=== PATIENT | male | born 1940 | race Caucasian/White ===

== ENCOUNTER 2017-11-07 09:02 | Inpatient (IN) | payer OTHER ==
[~2017-11-07] VITALS: Ht 165.1 cm; Wt 72.5 kg
[~2017-11-07 09:02] MED LIST: ASPI-1005 PO; ATOR-2 PO; CETI10TA57 PO; CYAN10009 PO; DEXT15DR28 OU; DIAZ10TA4 PO; DOCU100C33 PO; GUAI400T79 PO; HYDR-4060 PO; IPRA4AER IH; ISOS30TA6 PO; LISI2.5T2 PO; MIRT30TA6 PO; NITR0.4T50 SL; NIZO215C TP; OMEG1CAP43 PO; OMEP20CA10 PO; POLY17PO3 PO; SELE120S2 TP; SIME80TA12 PO; TRAM50TA4 PO
[2017-11-07] MEDS ORDERED: ASPIRIN 325 MG TABLET ONE (09:22)
[2017-11-07 09:25] LABS: BASOPHILS % (AUTO) 0.3 % (0.0-5.0); EOSINOPHILS % (AUTO) 0.8 % (0.0-8.0); HEMATOCRIT 48.2 % (42-54); LYMPHOCYTES % (AUTO) 6.6 % (21.0-51.0); MEAN CORPUSCULAR HEMOGLOBIN 31.4 pg (27.0-33.0); MEAN CORPUSCULAR HGB CONC 32.9 g/dL (32.0-36.0); MEAN CORPUSCULAR VOLUME 95.3 fL (79-99); MONOCYTES % (AUTO) 4.1 % (3.0-13.0); NEUTROPHILS % (AUTO) 88.2 % (40.0-77.0); NUCLEATED RED BLOOD CELLS 0.1 % (0.0-0.19); PLATELET COUNT (AUTO) 167 K/uL (130-400); RED BLOOD CELL COUNT(AUTO) 5.06 MIL/uL (4.50-6.20); RED CELL DISTRIBUTION WIDTH 14.1 % (11.0-15.5); WHITE BLOOD COUNT (AUTO) 15.1 K/uL (4.8-10.8)
[2017-11-07 09:37] LABS: CREATININE 1.2 mg/dL (0.5-1.5); POTASSIUM 3.9 mmol/L (3.5-5.1)
[2017-11-07 09:50] LABS: INR 0.94 (0.85-1.15); PARTIAL THROMBOPLASTIN TIME 19.9 SEC (26.3-35.5); PROTHROMBIN TIME 9.9 SEC (9.6-11.6)
[2017-11-07 09:53] LABS: ALBUMIN 3.6 g/dL (3.5-5.0); BILIRUBIN,TOTAL 0.6 mg/dL (0.2-1.0); CREATINE KINASE MB 1.1 ng/mL (0.5-3.6); TOTAL PROTEIN, SERUM 7.3 g/dL (6.0-8.3)
[2017-11-07 10:17] LABS: BAND NEUTROPHILS % (MANUAL) 1 % (0-2); EOSINOPHILS % (MANUAL) 3 % (1-6); LYMPHOCYTES % (MANUAL) 12 % (22-44); MAN.DIFF COMMENT-IMPRESSION MANUAL DIFFERENTIAL; REACTIVE LYMPHOCYTES 2 % (0-0); SEGMENTED NEUTROPHILS % 82 % (40-70)
[2017-11-07 10:18] LABS: PLATELET MORPHOLOGY COMMENT ADEQUATE
[2017-11-07] MEDS ORDERED: ONDANSETRON HCL 4 MG/2 ML VIAL ONE (10:29)
[2017-11-07] MEDS ORDERED: METHYLPREDNISOLONE SOD SUCC 40MG/ML 1ML ONE (10:29)
[2017-11-07] MEDS ORDERED: ZOSYN 3.375GM+NS 50ML 50 ML IV ONE (10:30)
[2017-11-07] MEDS ORDERED: SUCRALFATE 1 GM TABLET ONE (10:46)
[2017-11-07] MEDS ORDERED: SODIUM CHLORIDE 0.9% 1000ML 1,000 ML IV ONE (11:02)
[2017-11-07] MEDS ORDERED: IOHEXOL 350 MG/ML 100ML INFUS..BTL IV ONE (11:32)
[2017-11-07] MEDS ORDERED: IPRATROPIUM/ALBUTEROL SULFATE 3 ML SOLUTION IH ONE (13:31)
[2017-11-07 14:29] VITALS: BP 138/88
[2017-11-07] MEDS ORDERED: SPIR25TA PO (15:36)
[2017-11-07] MEDS ORDERED: TRAZ-187 PO (15:36)
[2017-11-07] MEDS ORDERED: BUDE10.2 IH (15:36)
[2017-11-07] MEDS ORDERED: ALBU8.5H8 IH (15:36)
[2017-11-07] MEDS ORDERED: PRED20TA3 PO (15:36)
[2017-11-07 15:53] VITALS: BP 134/84
[2017-11-07] MEDS: SODIUM CHLORIDE 0.9% 1000ML 1,000 ML IV SCH (16:14)
[2017-11-07] MEDS: SUCRALFATE 1 GM/10 ML PO SCH ×2 (16:30→20:39)
[2017-11-07] MEDS: METRONIDAZOLE 500MG/100ML BAG 100 ML IV SCH (18:32)
[2017-11-07] MEDS: HYDROCODONE/ACETAMINOPHEN 5/325 MG TAB PO PRN (18:38)
[2017-11-07] MEDS: IPRATROPIUM/ALBUTEROL SULFATE 3 ML SOLUTION IH SCH ×2 (19:11→22:00)
[2017-11-07 19:21] VITALS: BP 100/53
[2017-11-07] MEDS: TRAZODONE HCL 100 MG TABLET PO SCH (20:38)
[2017-11-07] MEDS: ATORVASTATIN CALCIUM 40 MG TABLET PO SCH (20:38)
[2017-11-07] MEDS: MIRTAZAPINE 15 MG TABLET PO SCH (20:38)
[2017-11-07] MEDS: FAMOTIDINE/PF 20 MG/2 ML VIAL IV SCH (20:39)
[2017-11-07] MEDS: ZOSYN 3.375GM+NS 50ML 50 ML IV SCH (20:40)
[2017-11-07] MEDS: SYMBICORT 160-4.5 MCG INHALER IH SCH (21:00)
[2017-11-07 23:52] VITALS: BP 126/87
[2017-11-08] MEDS: METRONIDAZOLE 500MG/100ML BAG 100 ML IV SCH ×3 (00:17→16:06)
[2017-11-08] MEDS: IPRATROPIUM/ALBUTEROL SULFATE 3 ML SOLUTION IH SCH ×6 (02:13→22:12)
[2017-11-08] MEDS: HYDROCODONE/ACETAMINOPHEN 5/325 MG TAB PO PRN ×3 (02:47→23:13)
[2017-11-08] MEDS: DIAZEPAM 5 MG TABLET PO SCH ×2 (03:24→21:02)
[2017-11-08 04:45] LABS: BASOPHILS % (AUTO) 0.1 % (0.0-5.0); HEMATOCRIT 44.1 % (42-54); LYMPHOCYTES % (AUTO) 4.1 % (21.0-51.0); MEAN CORPUSCULAR HEMOGLOBIN 31.4 pg (27.0-33.0); MEAN CORPUSCULAR HGB CONC 32.9 g/dL (32.0-36.0); MEAN CORPUSCULAR VOLUME 95.3 fL (79-99); MONOCYTES % (AUTO) 5.2 % (3.0-13.0); NEUTROPHILS % (AUTO) 90.6 % (40.0-77.0); PLATELET COUNT (AUTO) 131 K/uL (130-400); RED BLOOD CELL COUNT(AUTO) 4.62 MIL/uL (4.50-6.20); RED CELL DISTRIBUTION WIDTH 14.4 % (11.0-15.5); WHITE BLOOD COUNT (AUTO) 10.4 K/uL (4.8-10.8)
[2017-11-08 04:48] VITALS: BP 126/71
[2017-11-08 05:01] LABS: INR 0.97 (0.85-1.15); PARTIAL THROMBOPLASTIN TIME 25.8 SEC (26.3-35.5); PROTHROMBIN TIME 10.2 SEC (9.6-11.6)
[2017-11-08 05:02] LABS: ALBUMIN 3.1 g/dL (3.5-5.0); BILIRUBIN,DIRECT 0.1 mg/dL (0.0-0.3); BILIRUBIN,TOTAL 0.6 mg/dL (0.2-1.0); CREATININE 1.5 mg/dL (0.5-1.5); MAGNESIUM 1.8 mg/dL (1.80-2.40); POTASSIUM 3.6 mmol/L (3.5-5.1); TOTAL PROTEIN, SERUM 6.5 g/dL (6.0-8.3)
[2017-11-08] MEDS: ZOSYN 3.375GM+NS 50ML 50 ML IV SCH ×3 (06:39→21:03)
[2017-11-08] MEDS: SUCRALFATE 1 GM/10 ML PO SCH ×4 (06:40→21:03)
[2017-11-08] MEDS: SODIUM CHLORIDE 0.9% 1000ML 1,000 ML IV SCH (06:43)
[2017-11-08 07:43] VITALS: BP 124/66
[2017-11-08] MEDS: ENOXAPARIN SODIUM 40 MG/0.4 ML SYRINGE SQ SCH (09:00)
[2017-11-08] MEDS: PREDNISONE 10 MG TABLET PO SCH (09:09)
[2017-11-08] MEDS: FAMOTIDINE/PF 20 MG/2 ML VIAL IV SCH ×2 (09:10→21:02)
[2017-11-08] MEDS: ISOSORBIDE MONO 30MG TAB SR PO SCH (09:10)
[2017-11-08] MEDS: ASPIRIN 81MG TAB.CHEW PO SCH (09:11)
[2017-11-08] MEDS: SYMBICORT 160-4.5 MCG INHALER IH SCH ×2 (09:15→21:00)
[2017-11-08 11:08] VITALS: BP 124/78
[2017-11-08 16:00] VITALS: BP 94/58
[2017-11-08] MEDS: CHOLESTYRAMINE PACKET 4 GM PACKET PO SCH ×2 (16:06→21:03)
[2017-11-08 19:12] VITALS: BP 129/75
[2017-11-08] MEDS: GABAPENTIN 100 MG CAPSULE PO SCH (21:00)
[2017-11-08] MEDS: MIRTAZAPINE 15 MG TABLET PO SCH (21:02)
[2017-11-08] MEDS: LACTOBACILLUS RHAMNOSUS GG 1 EACH CAP.SPRINK PO SCH (21:02)
[2017-11-08] MEDS: ATORVASTATIN CALCIUM 40 MG TABLET PO SCH (21:02)
[2017-11-08] MEDS: TRAZODONE HCL 100 MG TABLET PO SCH (21:02)
[2017-11-09] VITALS (8 sets, daily range): BP systolic 103–152; BP diastolic 52–83
[2017-11-09] MEDS: METRONIDAZOLE 500MG/100ML BAG 100 ML IV SCH ×3 (00:02→17:23)
[2017-11-09] MEDS ORDERED: IPRATROPIUM/ALBUTEROL SULFATE 3 ML SOLUTION IH PRN (00:45)
[2017-11-09] MEDS: IPRATROPIUM/ALBUTEROL SULFATE 3 ML SOLUTION IH SCH ×6 (03:03→21:57)
[2017-11-09 04:19] LABS: BASOPHILS % (AUTO) 0.5 % (0.0-5.0); EOSINOPHILS % (AUTO) 0.5 % (0.0-8.0); LYMPHOCYTES % (AUTO) 5.6 % (21.0-51.0); MEAN CORPUSCULAR HEMOGLOBIN 32.2 pg (27.0-33.0); MEAN CORPUSCULAR HGB CONC 33.7 g/dL (32.0-36.0); MEAN CORPUSCULAR VOLUME 95.4 fL (79-99); MONOCYTES % (AUTO) 5.8 % (3.0-13.0); NEUTROPHILS % (AUTO) 87.6 % (40.0-77.0); PLATELET COUNT (AUTO) 143 K/uL (130-400); RED CELL DISTRIBUTION WIDTH 14.7 % (11.0-15.5); WHITE BLOOD COUNT (AUTO) 11.8 K/uL (4.8-10.8)
[2017-11-09 04:28] LABS: CREATININE 1.4 mg/dL (0.5-1.5); POTASSIUM 3.9 mmol/L (3.5-5.1)
[2017-11-09] MEDS: ZOSYN 3.375GM+NS 50ML 50 ML IV SCH ×3 (06:03→20:08)
[2017-11-09] MEDS: HYDROCODONE/ACETAMINOPHEN 5/325 MG TAB PO PRN ×2 (06:21→14:21)
[2017-11-09] MEDS: SUCRALFATE 1 GM/10 ML PO SCH ×4 (06:21→20:10)
[2017-11-09] MEDS: LACTOBACILLUS RHAMNOSUS GG 1 EACH CAP.SPRINK PO SCH ×2 (08:41→20:09)
[2017-11-09] MEDS: ASPIRIN 81MG TAB.CHEW PO SCH (08:42)
[2017-11-09] MEDS: ENOXAPARIN SODIUM 40 MG/0.4 ML SYRINGE SQ SCH (08:42)
[2017-11-09] MEDS: PREDNISONE 10 MG TABLET PO SCH (08:42)
[2017-11-09] MEDS: ISOSORBIDE MONO 30MG TAB SR PO SCH (08:42)
[2017-11-09] MEDS: SYMBICORT 160-4.5 MCG INHALER IH SCH ×2 (08:43→20:10)
[2017-11-09] MEDS: FAMOTIDINE/PF 20 MG/2 ML VIAL IV SCH ×2 (08:43→20:10)
[2017-11-09] MEDS: CHOLESTYRAMINE PACKET 4 GM PACKET PO SCH (08:46)
[2017-11-09] MEDS: FUROSEMIDE 20 MG TABLET PO SCH (16:19)
[2017-11-09] MEDS: SPIRONOLACTONE 25 MG TAB PO SCH (16:19)
[2017-11-09] MEDS: TRAZODONE HCL 100 MG TABLET PO SCH (20:09)
[2017-11-09] MEDS: MIRTAZAPINE 15 MG TABLET PO SCH (20:09)
[2017-11-09] MEDS: ATORVASTATIN CALCIUM 40 MG TABLET PO SCH (20:09)
[2017-11-09] MEDS: GABAPENTIN 100 MG CAPSULE PO SCH (20:10)
[2017-11-09] MEDS: DIAZEPAM 5 MG TABLET PO SCH (21:49)
[2017-11-10] MEDS: METRONIDAZOLE 500MG/100ML BAG 100 ML IV SCH ×3 (01:09→18:08)
[2017-11-10] MEDS: IPRATROPIUM/ALBUTEROL SULFATE 3 ML SOLUTION IH SCH ×6 (02:33→22:44)
[2017-11-10] MEDS: ZOSYN 3.375GM+NS 50ML 50 ML IV SCH ×3 (04:58→21:15)
[2017-11-10 05:47] LABS: BASOPHILS % (AUTO) 0.3 % (0.0-5.0); EOSINOPHILS % (AUTO) 2.6 % (0.0-8.0); HEMATOCRIT 39.7 % (42-54); MEAN CORPUSCULAR HEMOGLOBIN 32.2 pg (27.0-33.0); MEAN CORPUSCULAR HGB CONC 33.8 g/dL (32.0-36.0); MEAN CORPUSCULAR VOLUME 95.4 fL (79-99); NEUTROPHILS % (AUTO) 80.1 % (40.0-77.0); PLATELET COUNT (AUTO) 129 K/uL (130-400); RED BLOOD CELL COUNT(AUTO) 4.16 MIL/uL (4.50-6.20); RED CELL DISTRIBUTION WIDTH 14.6 % (11.0-15.5); WHITE BLOOD COUNT (AUTO) 8.8 K/uL (4.8-10.8)
[2017-11-10 05:59] LABS: CREATININE 1.4 mg/dL (0.5-1.5); MAGNESIUM 1.9 mg/dL (1.80-2.40); POTASSIUM 3.4 mmol/L (3.5-5.1)
[2017-11-10 07:00] VITALS: BP 130/91
[2017-11-10] MEDS: SUCRALFATE 1 GM/10 ML PO SCH ×4 (07:03→21:13)
[2017-11-10] MEDS: PREDNISONE 10 MG TABLET PO SCH (09:54)
[2017-11-10] MEDS: LACTOBACILLUS RHAMNOSUS GG 1 EACH CAP.SPRINK PO SCH ×2 (09:54→21:13)
[2017-11-10] MEDS: SPIRONOLACTONE 25 MG TAB PO SCH (09:54)
[2017-11-10] MEDS: FUROSEMIDE 20 MG TABLET PO SCH (09:55)
[2017-11-10] MEDS: ASPIRIN 81MG TAB.CHEW PO SCH (09:55)
[2017-11-10] MEDS: ISOSORBIDE MONO 30MG TAB SR PO SCH (09:55)
[2017-11-10] MEDS: FAMOTIDINE/PF 20 MG/2 ML VIAL IV SCH ×2 (09:55→21:14)
[2017-11-10] MEDS: SYMBICORT 160-4.5 MCG INHALER IH SCH ×2 (09:56→21:00)
[2017-11-10] MEDS: ENOXAPARIN SODIUM 40 MG/0.4 ML SYRINGE SQ SCH (09:57)
[2017-11-10 11:00] VITALS: BP 123/76
[2017-11-10] MEDS: HYDROCODONE/ACETAMINOPHEN 10/325 MG TAB PO PRN ×2 (12:23→21:36)
[2017-11-10 16:00] VITALS: BP 103/59
[2017-11-10] MEDS ORDERED: POLYETHYLENE GLYCOL 3350 17 GM POWD.PACK ONE (18:06)
[2017-11-10] MEDS ORDERED: DOCUSATE SODIUM 100 MG CAP PO ONE (18:06)
[2017-11-10] MEDS ORDERED: PANTOPRAZOLE SODIUM 40 MG TABLET.DR PO ONE (18:06)
[2017-11-10 19:10] LABS: ABG BASE EXCESS 2.9 mmol/L (-2.0-3.0); ABG HCO3 27.3 mmol/L (21.0-28.0); ABG OXYGEN SATURATION 95.3 % (95.0-99.0); ABG PCO2 41 mmHg (35-48)
[2017-11-10 20:00] VITALS: BP 124/85
[2017-11-10] MEDS: ATORVASTATIN CALCIUM 40 MG TABLET PO SCH (21:13)
[2017-11-10] MEDS: TRAZODONE HCL 100 MG TABLET PO SCH (21:13)
[2017-11-10] MEDS: DOCUSATE SODIUM 100 MG CAP PO SCH (21:14)
[2017-11-10] MEDS: DIAZEPAM 5 MG TABLET PO SCH (21:14)
[2017-11-10] MEDS: GABAPENTIN 100 MG CAPSULE PO SCH (21:14)
[2017-11-10] MEDS: MIRTAZAPINE 15 MG TABLET PO SCH (21:14)
[2017-11-11] MEDS: METRONIDAZOLE 500MG/100ML BAG 100 ML IV SCH ×2 (01:14→10:32)
[2017-11-11] MEDS: IPRATROPIUM/ALBUTEROL SULFATE 3 ML SOLUTION IH SCH ×6 (02:28→21:19)
[2017-11-11] MEDS: ZOSYN 3.375GM+NS 50ML 50 ML IV SCH (04:59)
[2017-11-11] MEDS: SUCRALFATE 1 GM/10 ML PO SCH ×5 (06:10→22:00)
[2017-11-11 08:00] VITALS: BP 146/86
[2017-11-11] MEDS: SYMBICORT 160-4.5 MCG INHALER IH SCH ×2 (09:00→21:00)
[2017-11-11] MEDS: ENOXAPARIN SODIUM 40 MG/0.4 ML SYRINGE SQ SCH (09:00)
[2017-11-11] MEDS: DOCUSATE SODIUM 100 MG CAP PO SCH ×3 (10:30→22:00)
[2017-11-11] MEDS: PANTOPRAZOLE SODIUM 40 MG TABLET.DR PO SCH (10:30)
[2017-11-11] MEDS: ASPIRIN 81MG TAB.CHEW PO SCH (10:30)
[2017-11-11] MEDS: PREDNISONE 10 MG TABLET PO SCH (10:30)
[2017-11-11] MEDS: SPIRONOLACTONE 25 MG TAB PO SCH (10:30)
[2017-11-11] MEDS: LACTOBACILLUS RHAMNOSUS GG 1 EACH CAP.SPRINK PO SCH ×2 (10:30→22:01)
[2017-11-11] MEDS: FUROSEMIDE 20 MG TABLET PO SCH (10:31)
[2017-11-11] MEDS: POLYETHYLENE GLYCOL 3350 17 GM POWD.PACK PO SCH (10:32)
[2017-11-11] MEDS: ISOSORBIDE MONO 30MG TAB SR PO SCH (10:32)
[2017-11-11] MEDS: FAMOTIDINE/PF 20 MG/2 ML VIAL IV SCH ×2 (10:32→22:02)
[2017-11-11] MEDS: HYDROCODONE/ACETAMINOPHEN 10/325 MG TAB PO PRN ×2 (11:05→18:58)
[2017-11-11 12:00] VITALS: BP 100/66
[2017-11-11] MEDS ORDERED: LIDOCAINE HCL-MPF 1% 2ML VIAL IVP PRN (15:15)
[2017-11-11] MEDS ORDERED: POTASSIUM CHLORIDE 10% ELIXIR 20 MEQ/15 ML UDCUP PO PRN (15:15)
[2017-11-11] MEDS ORDERED: POTASSIUM CHLORIDE 20MEQ/100ML 100 ML IV PRN (15:15)
[2017-11-11] MEDS: POTASSIUM CHLORIDE 20 MEQ ERTAB PO PRN ×2 (17:04→18:56)
[2017-11-11 19:00] VITALS: BP 115/70
[2017-11-11 19:11] VITALS: BP 112/68
[2017-11-11 20:00] VITALS: BP 115/70
[2017-11-11] MEDS: TRAZODONE HCL 100 MG TABLET PO SCH (21:59)
[2017-11-11] MEDS: MIRTAZAPINE 15 MG TABLET PO SCH (22:01)
[2017-11-11] MEDS: DOXYCYCLINE HYCLATE 100 MG TABLET PO SCH (22:01)
[2017-11-11] MEDS: ATORVASTATIN CALCIUM 40 MG TABLET PO SCH (22:01)
[2017-11-11] MEDS: GABAPENTIN 100 MG CAPSULE PO SCH (22:01)
[2017-11-11] MEDS: DIAZEPAM 5 MG TABLET PO SCH (22:02)
[2017-11-12] MEDS: IPRATROPIUM/ALBUTEROL SULFATE 3 ML SOLUTION IH SCH ×6 (01:04→21:05)
[2017-11-12] MEDS: HYDROCODONE/ACETAMINOPHEN 10/325 MG TAB PO PRN ×3 (01:16→23:33)
[2017-11-12 06:28] VITALS: BP 152/94
[2017-11-12] MEDS: SUCRALFATE 1 GM/10 ML PO SCH ×4 (07:30→20:29)
[2017-11-12] MEDS: SYMBICORT 160-4.5 MCG INHALER IH SCH ×2 (08:04→20:46)
[2017-11-12] MEDS: PREDNISONE 10 MG TABLET PO SCH (08:06)
[2017-11-12] MEDS: ASPIRIN 81MG TAB.CHEW PO SCH (08:08)
[2017-11-12] MEDS: FUROSEMIDE 20 MG TABLET PO SCH (08:09)
[2017-11-12] MEDS: DOXYCYCLINE HYCLATE 100 MG TABLET PO SCH ×2 (08:09→20:30)
[2017-11-12] MEDS: SPIRONOLACTONE 25 MG TAB PO SCH (08:09)
[2017-11-12] MEDS: ISOSORBIDE MONO 30MG TAB SR PO SCH (08:09)
[2017-11-12] MEDS: POLYETHYLENE GLYCOL 3350 17 GM POWD.PACK PO SCH (08:10)
[2017-11-12] MEDS: LACTOBACILLUS RHAMNOSUS GG 1 EACH CAP.SPRINK PO SCH ×2 (08:10→20:33)
[2017-11-12] MEDS: DOCUSATE SODIUM 100 MG CAP PO SCH ×3 (08:13→20:32)
[2017-11-12] MEDS: ENOXAPARIN SODIUM 40 MG/0.4 ML SYRINGE SQ SCH (08:17)
[2017-11-12] MEDS: PANTOPRAZOLE SODIUM 40 MG TABLET.DR PO SCH (08:17)
[2017-11-12] MEDS: FAMOTIDINE/PF 20 MG/2 ML VIAL IV SCH ×2 (08:19→20:30)
[2017-11-12 12:00] VITALS: BP 128/78
[2017-11-12 16:00] VITALS: BP 130/72
[2017-11-12 19:55] VITALS: BP 109/75
[2017-11-12] MEDS: DIAZEPAM 5 MG TABLET PO SCH (20:29)
[2017-11-12] MEDS: MIRTAZAPINE 15 MG TABLET PO SCH (20:32)
[2017-11-12] MEDS: ATORVASTATIN CALCIUM 40 MG TABLET PO SCH (20:32)
[2017-11-12] MEDS: GABAPENTIN 100 MG CAPSULE PO SCH (20:33)
[2017-11-12] MEDS: TRAZODONE HCL 100 MG TABLET PO SCH (20:33)
[2017-11-12 23:57] VITALS: BP 137/84
[2017-11-13] MEDS: IPRATROPIUM/ALBUTEROL SULFATE 3 ML SOLUTION IH SCH ×5 (01:02→18:00)
[2017-11-13 05:13] VITALS: BP 140/82
[2017-11-13 05:25] LABS: BASOPHILS % (AUTO) 0.8 % (0.0-5.0); EOSINOPHILS % (AUTO) 3.1 % (0.0-8.0); MEAN CORPUSCULAR HEMOGLOBIN 32.7 pg (27.0-33.0); MEAN CORPUSCULAR HGB CONC 34.7 g/dL (32.0-36.0); MEAN CORPUSCULAR VOLUME 94.2 fL (79-99); MONOCYTES % (AUTO) 8.1 % (3.0-13.0); NUCLEATED RED BLOOD CELLS 0.1 % (0.0-0.19); PLATELET COUNT (AUTO) 192 K/uL (130-400); RED BLOOD CELL COUNT(AUTO) 4.14 MIL/uL (4.50-6.20); RED CELL DISTRIBUTION WIDTH 14.5 % (11.0-15.5); WHITE BLOOD COUNT (AUTO) 8.4 K/uL (4.8-10.8)
[2017-11-13 05:32] LABS: CREATININE 1.4 mg/dL (0.5-1.5); POTASSIUM 3.5 mmol/L (3.5-5.1)
[2017-11-13] MEDS: LACTOBACILLUS RHAMNOSUS GG 1 EACH CAP.SPRINK PO SCH (09:46)
[2017-11-13] MEDS: ISOSORBIDE MONO 30MG TAB SR PO SCH (09:47)
[2017-11-13] MEDS: DOXYCYCLINE HYCLATE 100 MG TABLET PO SCH (09:51)
[2017-11-13] MEDS: PREDNISONE 10 MG TABLET PO SCH (09:51)
[2017-11-13] MEDS: SPIRONOLACTONE 25 MG TAB PO SCH (09:51)
[2017-11-13] MEDS: PANTOPRAZOLE SODIUM 40 MG TABLET.DR PO SCH (09:51)
[2017-11-13] MEDS: HYDROCODONE/ACETAMINOPHEN 10/325 MG TAB PO PRN (09:52)
[2017-11-13] MEDS: FUROSEMIDE 20 MG TABLET PO SCH (09:52)
[2017-11-13] MEDS: POLYETHYLENE GLYCOL 3350 17 GM POWD.PACK PO SCH (09:53)
[2017-11-13] MEDS: ASPIRIN 81MG TAB.CHEW PO SCH (09:53)
[2017-11-13] MEDS: FAMOTIDINE/PF 20 MG/2 ML VIAL IV SCH (09:53)
[2017-11-13] MEDS: DOCUSATE SODIUM 100 MG CAP PO SCH ×2 (09:53→14:57)
[2017-11-13] MEDS: ENOXAPARIN SODIUM 40 MG/0.4 ML SYRINGE SQ SCH (09:56)
[2017-11-13] MEDS: SUCRALFATE 1 GM/10 ML PO SCH (10:48)
[2017-11-13] MEDS ORDERED: GUAIFENESIN-DM 200/20 MG 10 ML PO PRN (11:45)
[2017-11-13] MEDS ORDERED: ACETYLCYSTEINE 10% 100MG/ML 4ML VIAL IH SCH (14:00)
[2017-11-13] MEDS ORDERED: DOXY100C2 PO (14:42)
[2017-11-13] MEDS: POTASSIUM CHLORIDE 20 MEQ ERTAB PO PRN (15:10)
[2017-11-13 16:01] VITALS: BP 108/71
== END 2017-11-13 18:41 | disposition home or self-care (01) | DRG 871 ==
LOC: EDH 09:02 → EDHIP 11:05 → 4CH 14:08 → 3DH 11-09 10:20
PROVIDERS: ADMIT Internal Medicine; ATTEND Internal Medicine
DX: A41.9 Sepsis, unspecified organism (principal); J18.9 Pneumonia, unspecified organism; J96.21 Acute and chronic respiratory failure with hypoxia; I50.22 Chronic systolic (congestive) heart failure; R04.2 Hemoptysis; J44.0 Chronic obstructive pulmonary disease with (acute) lower respiratory infection; J44.1 Chronic obstructive pulmonary disease with (acute) exacerbation; I25.10 Atherosclerotic heart disease of native coronary artery without angina pectoris; J84.10 Pulmonary fibrosis, unspecified; K21.9 Gastro-esophageal reflux disease without esophagitis; F41.9 Anxiety disorder, unspecified; K59.00 Constipation, unspecified; K29.00 Acute gastritis without bleeding; G89.4 Chronic pain syndrome; I11.0 Hypertensive heart disease with heart failure; R19.7 Diarrhea, unspecified; G31.9 Degenerative disease of nervous system, unspecified; E86.0 Dehydration; Z74.01 Bed confinement status; Z87.891 Personal history of nicotine dependence; Z95.1 Presence of aortocoronary bypass graft; Z95.5 Presence of coronary angioplasty implant and graft; Z95.0 Presence of cardiac pacemaker; Z88.8 Allergy status to other drugs, medicaments and biological substances
CPT/HCPCS: 36415; 36600; 70450; 71045; 73030; 73562; 76700; 78580; 80048; 80053; 80076; 82550; 82553; 82803; 83605; 83690; 83735; 83874; 83880; 84132; 84484; 85025; 85378; 85610; 85730; 87040; 87046; 87071; 87186; 87205; 87507; 93005; 93971; 94640; 94664; 94760; 97039; A9540; J1650; J2405; J2543; J2920; J3490; J7030; J7512; J7608; Q9967

== ENCOUNTER 2018-04-29 11:31 | Inpatient (IN) | payer OTHER | END 2018-05-02 17:27 | disposition home or self-care (01) | LOC: EDH 11:31 → EDHIP 13:52 → 2AH 22:25 | DX: J44.1 Chronic obstructive pulmonary disease with (acute) exacerbation (principal); I50.22 Chronic systolic (congestive) heart failure; E11.65 Type 2 diabetes mellitus with hyperglycemia; J84.10 Pulmonary fibrosis, unspecified ==

== ENCOUNTER 2018-05-27 23:40 | Inpatient (IN) | payer OTHER | END 2018-05-30 14:20 | disposition home or self-care (01) | LOC: EDH 23:40 → EDHIP 05-28 02:35 → 4CH 05-28 16:55 | DX: J44.1 Chronic obstructive pulmonary disease with (acute) exacerbation (principal); E11.9 Type 2 diabetes mellitus without complications; F02.80 Dementia in other diseases classified elsewhere, unspecified severity, without behavioral disturbance, psychotic disturbance, mood disturbance, and anxiety; Z79.4 Long term (current) use of insulin; R09.02 Hypoxemia ==

== ENCOUNTER 2018-06-06 21:55 | Emergency (ER) | payer OTHER ==
[~2018-06-06 21:55] MED LIST changes: +ALBUHFA IH; +BUDE10.2 IH; +CARB1DRO4 OP; -CETI10TA57 PO; -CYAN10009 PO; -DEXT15DR28 OU; +DICL4100G TP; +FURO40TA5 PO; -GUAI400T79 PO; -HYDR-4060 PO; +INSLAN SQ; +LIDO700A30 TP; -LISI2.5T2 PO; +METF-444 PO; +MICO45CR11 VG; -NITR0.4T50 SL; -NIZO215C TP; +NYST5ORA7 PO; -OMEG1CAP43 PO; -POLY17PO3 PO; -SELE120S2 TP; -SIME80TA12 PO; +SPIR25TA PO; +TIOT18CA3 IH; -TRAM50TA4 PO
[2018-06-06] MEDS ORDERED: METHYLPREDNISOLONE SOD SUCC 125MG/2ML VIAL ONE (22:30)
[2018-06-06] MEDS ORDERED: ACETAMINOPHEN EXTRA STRENGTH 500 MG TABLET ONE (22:30)
[2018-06-06] MEDS ORDERED: IPRATROPIUM/ALBUTEROL SULFATE 3 ML SOLUTION IH ONE (22:35)
[2018-06-06 22:37] LABS: BASOPHILS % (AUTO) 0.7 % (0.0-5.0); CREATININE 1.2 mg/dL (0.5-1.5); EOSINOPHILS % (AUTO) 1.2 % (0.0-8.0); HEMATOCRIT 37.7 % (42-54); LYMPHOCYTES % (AUTO) 18.7 % (21.0-51.0); MEAN CORPUSCULAR HGB CONC 33.6 g/dL (32.0-36.0); MEAN CORPUSCULAR VOLUME 92.1 fL (79-99); MONOCYTES % (AUTO) 8.8 % (3.0-13.0); NEUTROPHILS % (AUTO) 70.6 % (40.0-77.0); NUCLEATED RED BLOOD CELLS 0.3 % (0.0-0.19); PLATELET COUNT (AUTO) 176 K/uL (130-400); POTASSIUM 4.7 mmol/L (3.5-5.1); RED BLOOD CELL COUNT(AUTO) 4.09 MIL/uL (4.50-6.20); RED CELL DISTRIBUTION WIDTH 16.4 % (11.0-15.5); WHITE BLOOD COUNT (AUTO) 6.8 K/uL (4.8-10.8)
[2018-06-06 22:45] LABS: INR 0.98 (0.85-1.15); PARTIAL THROMBOPLASTIN TIME 23.4 SEC (26.3-35.5); PROTHROMBIN TIME 10.3 SEC (9.6-11.6)
[2018-06-06 22:47] LABS: ABG HCO3 25.7 mmol/L (21.0-28.0); ABG OXYGEN SATURATION 97.3 % (95.0-99.0); ABG PCO2 37 mmHg (35-48)
[2018-06-06 22:47] LABS: ALBUMIN 3.1 g/dL (3.5-5.0); BILIRUBIN,TOTAL 0.6 mg/dL (0.2-1.0); TOTAL PROTEIN, SERUM 6.6 g/dL (6.0-8.3)
[2018-06-06 22:55] LABS: B-TYPE NATRIURETIC PEPTIDE 80 pg/mL (0-100)
[2018-06-06] MEDS ORDERED: ALBUTEROL SULFATE 0.083% 2.5 MG/3 ML INH IH ONE (23:26)
[2018-06-06] MEDS ORDERED: AZITHROMYCIN 500MG+NS 250ML 250 ML IV ONE (23:39)
[2018-06-07] MEDS ORDERED: ALBUTEROL SULFATE 0.083% 2.5 MG/3 ML INH IH ONE ×2 (01:00→02:14)
[2018-06-07] MEDS ORDERED: PREDNISONE 20 MG TABLET ONE (02:08)
== END 2018-06-07 02:54 | disposition home or self-care (01) ==
LOC: EDH 21:55
DX: J44.1 Chronic obstructive pulmonary disease with (acute) exacerbation (principal); I10 Essential (primary) hypertension; I25.810 Atherosclerosis of coronary artery bypass graft(s) without angina pectoris; F43.10 Post-traumatic stress disorder, unspecified; Z88.1 Allergy status to other antibiotic agents; Z88.8 Allergy status to other drugs, medicaments and biological substances; Z98.890 Other specified postprocedural states; Z95.0 Presence of cardiac pacemaker; Z87.891 Personal history of nicotine dependence
CPT/HCPCS: 36415 ×2; 36600; 71045; 80053; 82803; 83605 ×2; 83880; 84484; 85025; 85610; 85730; 87040 ×2; 87804 ×2; 93005; 94640 ×4; 96365; 96366; 96375; 99285; J0456; J2930

== ENCOUNTER 2018-06-18 11:19 | Inpatient (IN) | payer OTHER | END 2018-06-27 18:10 | LOC: EDH 11:19 → 4CH 06-23 10:30 → 4AH 06-21 12:36 → EDHIP 14:01 → 4AH 14:54 | DX: J15.1 Pneumonia due to Pseudomonas (principal); J96.21 Acute and chronic respiratory failure with hypoxia; E43 Unspecified severe protein-calorie malnutrition; J44.1 Chronic obstructive pulmonary disease with (acute) exacerbation; J44.0 Chronic obstructive pulmonary disease with (acute) lower respiratory infection; J84.10 Pulmonary fibrosis, unspecified; Z99.81 Dependence on supplemental oxygen; E11.9 Type 2 diabetes mellitus without complications ==

== ENCOUNTER 2018-08-08 22:43 | Observation (INO) | payer OTHER ==
[~2018-08-08] VITALS: Ht 165.1 cm; Wt 75.4 kg
[~2018-08-08 22:43] MED LIST changes: -ATOR-2 PO; +BENZ-51 PO; +DOXY100C2 PO; +HYDR-4068 PO; -IPRA4AER IH; +LORA10CA9 PO; -SPIR25TA PO
[2018-08-08 23:40] LABS: CREATININE 1.7 mg/dL (0.5-1.5); POTASSIUM 3.7 mmol/L (3.5-5.1)
[2018-08-09 00:07] LABS: BASOPHILS % (AUTO) 0.8 % (0.0-5.0); HEMATOCRIT 37.7 % (42-54); LYMPHOCYTES % (AUTO) 19.1 % (21.0-51.0); MEAN CORPUSCULAR HEMOGLOBIN 31.8 pg (27.0-33.0); MEAN CORPUSCULAR HGB CONC 33.6 g/dL (32.0-36.0); MEAN CORPUSCULAR VOLUME 94.4 fL (79-99); MONOCYTES % (AUTO) 8.3 % (3.0-13.0); NEUTROPHILS % (AUTO) 68.8 % (40.0-77.0); NUCLEATED RED BLOOD CELLS 0.1 % (0.0-0.19); PLATELET COUNT (AUTO) 213 K/uL (130-400); RED BLOOD CELL COUNT(AUTO) 3.99 MIL/uL (4.50-6.20); RED CELL DISTRIBUTION WIDTH 16.9 % (11.0-15.5); WHITE BLOOD COUNT (AUTO) 5.8 K/uL (4.8-10.8)
[2018-08-09] MEDS ORDERED: ENOXAPARIN SODIUM 100 MG/1 ML SQ ONE (01:10)
[2018-08-09] MEDS ORDERED: METHYLPREDNISOLONE SOD SUCC 125MG/2ML VIAL IV STA (02:12)
[2018-08-09] MEDS ORDERED: SODIUM CHLORIDE 0.9% 1000ML 1,000 ML IV SCH (02:12)
[2018-08-09] MEDS ORDERED: NITROGLYCERIN 0.4 MG SL TAB SL PRN (02:15)
[2018-08-09] MEDS ORDERED: ACETAMINOPHEN 325 MG TAB PO PRN ×2 (02:15)
[2018-08-09] MEDS ORDERED: ONDANSETRON HCL 4 MG/2 ML VIAL IV PRN (02:15)
[2018-08-09] MEDS ORDERED: IPRATROPIUM/ALBUTEROL SULFATE 3 ML SOLUTION IH ONE (02:49)
[2018-08-09] MEDS ORDERED: SODIUM CHLORIDE 3% FOR INHALATION 4 ML/AMP VIAL.NEB IH ONE (02:49)
[2018-08-09] MEDS ORDERED: SODIUM CHLORIDE 0.9% 1000ML 1,000 ML IV ONE (03:16)
[2018-08-09 03:58] VITALS: BP 140/87
[2018-08-09] MEDS ORDERED: HYDROCODONE/ACETAMINOPHEN 5/325 MG TAB PO PRN (04:30)
[2018-08-09] MEDS ORDERED: FLUT15.88 NS (04:32)
[2018-08-09] MEDS ORDERED: SPIR25TA PO (04:32)
[2018-08-09] MEDS ORDERED: MELA5TAB14 PO (04:32)
[2018-08-09] MEDS ORDERED: INSLAN SQ (04:32)
[2018-08-09] MEDS ORDERED: TIOT18CA3 IH (04:32)
[2018-08-09] MEDS ORDERED: HYDROCODONE/ACETAMINOPHEN 5/325 MG TAB ONE ×2 (04:36→04:37)
[2018-08-09] MEDS ORDERED: METHYLPREDNISOLONE SOD SUCC 125MG/2ML VIAL ONE (04:38)
[2018-08-09] MEDS: ZOSYN 3.375GM+NS 50ML 50 ML IV SCH ×3 (04:45→20:25)
[2018-08-09 05:16] LABS: BASOPHILS % (AUTO) 1.1 % (0.0-5.0); EOSINOPHILS % (AUTO) 3.1 % (0.0-8.0); HEMATOCRIT 36.7 % (42-54); LYMPHOCYTES % (AUTO) 28.6 % (21.0-51.0); MEAN CORPUSCULAR HEMOGLOBIN 31.6 pg (27.0-33.0); MEAN CORPUSCULAR HGB CONC 33.5 g/dL (32.0-36.0); MEAN CORPUSCULAR VOLUME 94.3 fL (79-99); MONOCYTES % (AUTO) 8.6 % (3.0-13.0); NEUTROPHILS % (AUTO) 58.6 % (40.0-77.0); PLATELET COUNT (AUTO) 202 K/uL (130-400); RED BLOOD CELL COUNT(AUTO) 3.89 MIL/uL (4.50-6.20); RED CELL DISTRIBUTION WIDTH 17.5 % (11.0-15.5); WHITE BLOOD COUNT (AUTO) 5.6 K/uL (4.8-10.8)
[2018-08-09 05:32] LABS: ALBUMIN 3.4 g/dL (3.5-5.0); BILIRUBIN,TOTAL 0.6 mg/dL (0.2-1.0); CREATININE 1.5 mg/dL (0.5-1.5); POTASSIUM 3.7 mmol/L (3.5-5.1); TOTAL PROTEIN, SERUM 6.6 g/dL (6.0-8.3)
[2018-08-09] MEDS: IPRATROPIUM/ALBUTEROL SULFATE 3 ML SOLUTION IH SCH ×5 (06:33→22:08)
[2018-08-09 07:19] VITALS: BP 119/74
[2018-08-09] MEDS: FAMOTIDINE 20MG TAB 20 MG TAB PO SCH ×2 (09:00→20:25)
[2018-08-09] MEDS: ENOXAPARIN SODIUM 30 MG/0.3 ML SQ SCH (09:01)
[2018-08-09 11:14] VITALS: BP 118/77
[2018-08-09] MEDS ORDERED: SUB TO ALBUTEROL 2.5MG/3ML NEBULES PER P&T IH SCH (11:45)
[2018-08-09] MEDS ORDERED: IPRATROPIUM 0.5 MG/2.5 ML INH IH PRN (12:00)
[2018-08-09] MEDS: METHYLPREDNISOLONE SOD SUCC 40MG/ML 1ML IVP SCH ×3 (12:04→23:07)
[2018-08-09 12:40] LABS: APPEARANCE,URINE Clear (CLEAR); BILIRUBIN,URINE Negative (NEGATIVE); COLOR,URINE Yellow (YELLOW); GLUCOSE, URINE (UA) >=1000 mg/dL (NEGATIVE); KETONES,URINE Negative (NEGATIVE); LEUKOCYTE ESTERASE ,URINE Negative (NEGATIVE); NITRATE,URINE Negative (NEGATIVE); OCCULT BLOOD,URINE Negative (NEGATIVE); PH,URINE 5.5 (5.0-8.0); PROTEIN,URINE Negative (NEGATIVE)
[2018-08-09 12:49] LABS: BACTERIA,URINE None Seen /HPF (None Seen); RBC,URINE 0-1 /HPF (0-1); SQUAMOUS EPITHELIAL CELL,UR 0-2 /HPF (0-2); URIC ACID CRYSTALS,URINE Moderate /LPF (None Seen); WBC,URINE None Seen /HPF (0-1)
[2018-08-09] MEDS: ARTIFICAL TEARS SOL 15 ML OP SCH ×3 (13:00→20:28)
--- NOTE | 2018-08-09 15:00 | NUR ---
cm note met with patient and states resides at home with spouse, able to do own adls. uses walker for ambulation, has a w/c uses at times. Home o2, and a nebulizer at home. states pt drives. dc plan is back to same home setting at [place]. goes to [place] for followup. no dc needs. Addendum: 08/09/18 at 1502 by SOHA KASPER CM Amended: Links added.
[2018-08-09 15:31] VITALS: BP 126/72
[2018-08-09] MEDS: HYDROCODONE/ACETAMINOPHEN 5/325 MG TAB PO PRN (15:31)
[2018-08-09] MEDS ORDERED: DEXTROSE 50%-WATER 50 ML DISP.SYRIN IV PRN (17:30)
[2018-08-09] MEDS ORDERED: GLUCAGON 1MG KIT 1 MG ML IM PRN (17:30)
[2018-08-09] MEDS: BUDESONIDE 0.5 MG/2 ML INH IH SCH (18:23)
[2018-08-09 19:00] VITALS: BP 126/69
[2018-08-09] MEDS ORDERED: MIRTAZAPINE 15 MG TABLET PO SCH (21:00)
[2018-08-09] MEDS ORDERED: DIAZEPAM 5 MG TABLET PO SCH (21:00)
[2018-08-09] MEDS: INSULIN HUMULIN R 100 UNIT/ML 3ML SQ SCH (21:50)
[2018-08-09 23:00] VITALS: BP 129/68
[2018-08-10] MEDS: IPRATROPIUM/ALBUTEROL SULFATE 3 ML SOLUTION IH SCH ×4 (02:54→14:21)
[2018-08-10 03:00] VITALS: BP 120/63
[2018-08-10] MEDS: HYDROCODONE/ACETAMINOPHEN 5/325 MG TAB PO PRN ×2 (03:43→08:32)
[2018-08-10 04:34] LABS: BASOPHILS % (AUTO) 0.1 % (0.0-5.0); HEMATOCRIT 36.3 % (42-54); LYMPHOCYTES % (AUTO) 6.9 % (21.0-51.0); MEAN CORPUSCULAR HEMOGLOBIN 32.2 pg (27.0-33.0); MEAN CORPUSCULAR HGB CONC 33.9 g/dL (32.0-36.0); MONOCYTES % (AUTO) 2.5 % (3.0-13.0); NEUTROPHILS % (AUTO) 90.5 % (40.0-77.0); NUCLEATED RED BLOOD CELLS 0.1 % (0.0-0.19); PLATELET COUNT (AUTO) 187 K/uL (130-400); RED BLOOD CELL COUNT(AUTO) 3.82 MIL/uL (4.50-6.20); RED CELL DISTRIBUTION WIDTH 16.9 % (11.0-15.5); WHITE BLOOD COUNT (AUTO) 4.7 K/uL (4.8-10.8)
[2018-08-10 04:52] LABS: ALBUMIN 3.1 g/dL (3.5-5.0); BILIRUBIN,TOTAL 0.3 mg/dL (0.2-1.0); CREATININE 1.5 mg/dL (0.5-1.5); POTASSIUM 4.1 mmol/L (3.5-5.1); TOTAL PROTEIN, SERUM 6.4 g/dL (6.0-8.3)
[2018-08-10] MEDS: METHYLPREDNISOLONE SOD SUCC 40MG/ML 1ML IVP SCH ×2 (05:06→12:18)
[2018-08-10] MEDS: ZOSYN 3.375GM+NS 50ML 50 ML IV SCH ×2 (05:06→12:18)
[2018-08-10] MEDS: BUDESONIDE 0.5 MG/2 ML INH IH SCH (06:32)
[2018-08-10] MEDS: INSULIN HUMULIN R 100 UNIT/ML 3ML SQ SCH ×3 (06:45→16:30)
[2018-08-10 07:10] VITALS: BP 125/85
--- NOTE | 2018-08-10 08:00 | NUR ---
AM ASSESSMENT PT SITTING IN BED. SPOUSE @ BEDSIDE. A/O X 3. SOB ON EXERTION. NO DISTRESS NOTED. O2 NC @ 3L. DENIES CHEST PAIN OR DISCOMFORT. DENIES PALPITATIONS. C/O OF GENERALIZED PAIN. PO PAIN MEDICATION TO BE GIVEN. REFUSING TELEMETRY. DENIES N/V AND/OR DIARRHEA. BR W/BRP. UP W/ASSISTANCE. INSTRUCTED TO CALL FOR ASSISTANCE. CALL SPENSER W/IN REACH. PER PT, PT TO GO HOME TODAY WITH OR W/OUT MD'S ORDER. PT HAS "IMPORTANT APPT @ [facility] TOMORROW." AWARE.
[2018-08-10] MEDS: FAMOTIDINE 20MG TAB 20 MG TAB PO SCH (08:17)
[2018-08-10] MEDS: ENOXAPARIN SODIUM 30 MG/0.3 ML SQ SCH (08:18)
[2018-08-10] MEDS: ARTIFICAL TEARS SOL 15 ML OP SCH ×2 (08:29→13:14)
[2018-08-10] MEDS ORDERED: SPIRONOLACTONE 25 MG TAB PO SCH (09:00)
[2018-08-10] MEDS ORDERED: LORATADINE 10 MG TABLET PO SCH (09:00)
[2018-08-10] MEDS ORDERED: FUROSEMIDE 20 MG TABLET PO SCH (09:00)
[2018-08-10] MEDS ORDERED: FLUTICASONE PROPIONATE 50MCG/SPRAY 16 GM BOTTLE EN SCH (09:00)
[2018-08-10 11:43] VITALS: BP 145/82
--- NOTE | 2018-08-10 16:20 | NUR ---
DISCHARGE VERBAL & WRITTEN DISCHARGE INSTRUCTIONS REVIEWED & GIVEN TO PT, SPOUSE & FAMILY. QUESTIONS ENCOURAGED & CLARIFIED. PROPER CARE & MGT OF COPD EXACERBATION REVIEWED. PT TO CONTINUE HOME MEDICATIONS. PT TO F/U TOMORROW @ [facility]. REINFORCED IMPORTANCE OF ATTENDING APPT. IV DISCONTINUED. PT & FAMILY TO GATHER PERSONAL BELONGINGS. WILL NOTIFY STAFF WHEN READY TO BE TAKEN TO PRIVATE VEHICLE.
--- NOTE | 2018-08-10 16:53 | NUR ---
DISCHARGE PT TAKEN TO PRIVATE VEHICLE VIA WC BY Malinda GONZALES PCP, ACCOMPANIED BY FAMILY. NO DISTRESS NOTED.
== END 2018-08-10 16:54 | disposition home or self-care (01) ==
LOC: EDH 22:43 → OBSVTOIN 08-09 01:36 → INTOOBSV 08-09 01:36 → EDHIP 08-09 01:36 → 2DH 08-09 03:25
PROVIDERS: ADMIT Internal Medicine; ATTEND Internal Medicine
DX: J44.1 Chronic obstructive pulmonary disease with (acute) exacerbation (principal); I13.0 Hypertensive heart and chronic kidney disease with heart failure and stage 1 through stage 4 chronic kidney disease, or unspecified chronic kidney disease; N18.2 Chronic kidney disease, stage 2 (mild); N17.9 Acute kidney failure, unspecified; R06.02 Shortness of breath; E44.1 Mild protein-calorie malnutrition; I50.22 Chronic systolic (congestive) heart failure; J84.10 Pulmonary fibrosis, unspecified; F43.10 Post-traumatic stress disorder, unspecified; Z95.1 Presence of aortocoronary bypass graft; Z95.810 Presence of automatic (implantable) cardiac defibrillator; Z79.01 Long term (current) use of anticoagulants; Z79.899 Other long term (current) drug therapy
CPT/HCPCS: 36415 ×3; 71045; 78582; 80048; 80053 ×2; 81001; 82550; 82948 ×3; 83735; 83880; 84484; 85025 ×3; 85378; 87040 ×2; 87071; 87205; 93005; 93970; 94640 ×13; 94664; 96365; 96366 ×2; 96372 ×2; 96375 ×2; 96376 ×2; 99284; A9540; A9558; G0378 ×34; J1650 ×3; J1815 ×2; J2405; J2543 ×5; J2920 ×5; J2930; J7030

== ENCOUNTER 2018-08-14 09:34 | Observation (INO) | payer OTHER ==
[~2018-08-14] VITALS: Ht 165.1 cm; Wt 74.1 kg
[~2018-08-14 09:34] MED LIST changes: -ASPI-1005 PO; -BENZ-51 PO; -DOCU100C33 PO; -DOXY100C2 PO; +FLUT15.88 NS; -HYDR-4068 PO; -ISOS30TA6 PO; +MELA5TAB14 PO; -OMEP20CA10 PO; +SPIR25TA PO
[2018-08-14 10:36] LABS: BASOPHILS % (AUTO) 0.4 % (0.0-5.0); EOSINOPHILS % (AUTO) 1.4 % (0.0-8.0); HEMATOCRIT 41.3 % (42-54); LYMPHOCYTES % (AUTO) 8.4 % (21.0-51.0); MEAN CORPUSCULAR HEMOGLOBIN 32.7 pg (27.0-33.0); MEAN CORPUSCULAR HGB CONC 34.7 g/dL (32.0-36.0); MEAN CORPUSCULAR VOLUME 94.1 fL (79-99); MONOCYTES % (AUTO) 6.2 % (3.0-13.0); NEUTROPHILS % (AUTO) 83.6 % (40.0-77.0); NUCLEATED RED BLOOD CELLS 0.1 % (0.0-0.19); PLATELET COUNT (AUTO) 219 K/uL (130-400); RED BLOOD CELL COUNT(AUTO) 4.38 MIL/uL (4.50-6.20); RED CELL DISTRIBUTION WIDTH 16.8 % (11.0-15.5)
[2018-08-14 10:42] LABS: CREATININE 1.8 mg/dL (0.5-1.5); POTASSIUM 3.1 mmol/L (3.5-5.1)
[2018-08-14 10:50] LABS: PARTIAL THROMBOPLASTIN TIME 24.5 SEC (26.3-35.5); PROTHROMBIN TIME 10.5 SEC (9.6-11.6)
[2018-08-14 10:51] LABS: APPEARANCE,URINE Clear (CLEAR); BILIRUBIN,URINE Negative (NEGATIVE); COLOR,URINE Yellow (YELLOW); GLUCOSE, URINE (UA) Negative (NEGATIVE); KETONES,URINE Negative (NEGATIVE); LEUKOCYTE ESTERASE ,URINE Negative (NEGATIVE); NITRATE,URINE Negative (NEGATIVE); OCCULT BLOOD,URINE Negative (NEGATIVE); PROTEIN,URINE Negative (NEGATIVE); UROBILINOGEN,URINE 0.2 mg/dL (0.2-1.0)
[2018-08-14 10:57] LABS: B-TYPE NATRIURETIC PEPTIDE 87 pg/mL (0-100)
[2018-08-14] MEDS ORDERED: FUROSEMIDE 10 MG/ML 4ML VIAL ONE (10:59)
[2018-08-14] MEDS ORDERED: FUROSEMIDE 10 MG/ML 4ML VIAL IV SCH (11:15)
[2018-08-14] MEDS ORDERED: ACETAMINOPHEN EXTENDED RELEASE 650 MG TABLET PO PRN ×2 (11:15)
[2018-08-14] MEDS ORDERED: IPRATROPIUM/ALBUTEROL SULFATE 3 ML SOLUTION IH ONE (11:26)
[2018-08-14] MEDS ORDERED: ALBUTEROL SULFATE 0.083% 2.5 MG/3 ML INH IH PRN (11:30)
[2018-08-14] MEDS: IPRATROPIUM 0.5 MG/2.5 ML INH IH SCH ×3 (12:00→23:37)
[2018-08-14] MEDS ORDERED: POTASSIUM CHLORIDE 20MEQ/100ML 100 ML IV PRN (12:15)
[2018-08-14] MEDS ORDERED: LIDOCAINE HCL-MPF 1% 2ML VIAL IJ PRN (12:15)
[2018-08-14] MEDS ORDERED: POTASSIUM CHLORIDE 10% ELIXIR 20 MEQ/15 ML UDCUP PO PRN (12:15)
[2018-08-14] MEDS ORDERED: DEXTROSE 50%-WATER 50 ML DISP.SYRIN IV PRN (12:15)
[2018-08-14] MEDS ORDERED: GLUCAGON 1MG KIT 1 MG ML IM PRN (12:15)
[2018-08-14] MEDS ORDERED: ACETAMINOPHEN 325 MG TAB PO PRN ×2 (12:15)
[2018-08-14 12:16] LABS: ABG BASE EXCESS 5.6 mmol/L (-2.0-3.0); ABG HCO3 25.2 mmol/L (21.0-28.0); ABG OXYGEN SATURATION 98.8 % (95.0-99.0); ABG PCO2 25 mmHg (35-48)
[2018-08-14] MEDS ORDERED: HYDROCODONE/ACETAMINOPHEN 7.5/325 MG TAB ONE (13:21)
[2018-08-14 14:15] VITALS: BP 105/66
[2018-08-14] MEDS ORDERED: ALPRAZOLAM 0.5 MG TABLET ONE (15:16)
[2018-08-14] MEDS ORDERED: HYDROCODONE/ACETAMINOPHEN 7.5/325 MG TAB PO PRN (15:45)
[2018-08-14 16:00] VITALS: BP 93/58
[2018-08-14] MEDS: ALPRAZOLAM 0.5 MG TABLET PO PRN (16:06)
[2018-08-14] MEDS: FUROSEMIDE 10 MG/ML 4ML VIAL IV SCH (16:09)
[2018-08-14] MEDS: MILRINONE-D5W 20 MG/100 ML 100 ML IV SCH (16:18)
[2018-08-14] MEDS: INSULIN R PO SSI SQ SCH ×2 (16:30→21:00)
--- NOTE | 2018-08-14 19:10 | NUR ---
Received pt on primacor drip. to bedside,noted to be anxious and restless.Instructed to use call light for assistance and pt. demonstrated understanding.
[2018-08-14 19:44] VITALS: BP 99/64
[2018-08-14] MEDS ORDERED: HYDR-4068 PO (19:46)
[2018-08-14] MEDS: HYDROCODONE/ACETAMINOPHEN 10/325 MG TAB PO SCH (21:00)
[2018-08-14] MEDS: APPL TP SCH (21:00)
[2018-08-14] MEDS ORDERED: NON-FORMULARY MEDICATION 1 EACH (Metformin HCl 500 MG) PO SCH (21:00)
[2018-08-14] MEDS: DICLOFENAC SODIUM TP SCH (21:00)
[2018-08-14] MEDS: ATORVASTATIN CALCIUM 40 MG TABLET PO SCH (21:06)
[2018-08-14] MEDS: DIAZEPAM 5 MG TABLET PO SCH (21:07)
[2018-08-14] MEDS: MIRTAZAPINE 15 MG TABLET PO SCH (21:07)
[2018-08-14] MEDS ORDERED: BUDESONIDE 0.5 MG/2 ML INH IH ONE (21:35)
[2018-08-14 23:25] VITALS: BP 103/49
[2018-08-14] MEDS: ALBUTEROL SULFATE 0.083% 2.5 MG/3 ML INH IH SCH (23:39)
[2018-08-15] MEDS: ALPRAZOLAM 0.5 MG TABLET PO PRN (02:44)
[2018-08-15] MEDS: HYDROCODONE/ACETAMINOPHEN 10/325 MG TAB PO SCH ×5 (02:46→21:32)
[2018-08-15 04:00] VITALS: BP 99/67
[2018-08-15 04:32] LABS: CREATININE 1.6 mg/dL (0.5-1.5)
[2018-08-15 04:41] LABS: POTASSIUM 2.9 mmol/L (3.5-5.1)
[2018-08-15] MEDS: POTASSIUM CHLORIDE 20 MEQ ERTAB PO PRN ×3 (05:44→14:53)
[2018-08-15] MEDS: FUROSEMIDE 10 MG/ML 4ML VIAL IV SCH ×2 (05:44→17:00)
[2018-08-15] MEDS: INSULIN R PO SSI SQ SCH ×4 (06:07→21:00)
[2018-08-15] MEDS: BUDESONIDE 0.5 MG/2 ML INH IH SCH ×2 (06:39→19:28)
[2018-08-15] MEDS: IPRATROPIUM 0.5 MG/2.5 ML INH IH SCH ×4 (06:39→23:36)
[2018-08-15] MEDS: ALBUTEROL SULFATE 0.083% 2.5 MG/3 ML INH IH SCH ×4 (06:39→23:35)
[2018-08-15] MEDS: MILRINONE-D5W 20 MG/100 ML 100 ML IV SCH (06:51)
[2018-08-15 07:00] VITALS: BP 124/67
--- NOTE | 2018-08-15 07:46 | NUR ---
Bedside repiort given to nurse Saúl ,pt remained stable, primacor infusing well to right forearm.
[2018-08-15] MEDS: METFORMIN HCL 500 MG TABLET PO SCH ×2 (08:22→17:00)
[2018-08-15] MEDS: DICLOFENAC SODIUM TP SCH ×4 (09:00→21:00)
[2018-08-15] MEDS ORDERED: ISOSORBIDE MONO 60 MG TAB.SR PO SCH (09:00)
[2018-08-15] MEDS: APPL TP SCH ×4 (09:00→21:00)
[2018-08-15] MEDS: FLUTICASONE PROPIONATE 50MCG/SPRAY 16 GM BOTTLE NS SCH (09:00)
[2018-08-15] MEDS: ASPIRIN 81MG TAB.CHEW PO SCH (10:18)
[2018-08-15] MEDS: ISOSORBIDE MONO 60 MG TAB.SR PO SCH (10:19)
[2018-08-15] MEDS: PANTOPRAZOLE SODIUM 40 MG TABLET.DR PO SCH (10:20)
[2018-08-15] MEDS: LORATADINE 10 MG TABLET PO SCH (10:20)
[2018-08-15] MEDS: ENOXAPARIN SODIUM 40 MG/0.4 ML SYRINGE SQ SCH (10:21)
[2018-08-15] MEDS: INSULIN GLARGINE 100 UNITS/ML 10 ML VIAL SQ SCH (10:23)
[2018-08-15] MEDS: LACTULOSE 20 GM/30 ML UDCUP PO PRN (10:49)
[2018-08-15 11:00] VITALS: BP 96/61
--- NOTE | 2018-08-15 14:39 | NUR ---
dcp melvin met with pt's Maddie [phone]. reports she and son assist pt will ADLS, transport and hoe management. Has oxygen rollator walker, wheelchair, nebulizer machine, shower chair, provider 2hrs Mon-Saturday[facility]. Denies dc needs. Pt feels safe to go back home, DC plan to home once stable. CM to cont to follow up.
[2018-08-15 16:00] VITALS: BP 94/60
[2018-08-15 19:18] VITALS: BP 89/60
[2018-08-15] MEDS ORDERED: LOSARTAN 50 MG TABLET PO SCH (20:00)
[2018-08-15] MEDS: DIAZEPAM 5 MG TABLET PO SCH (21:30)
[2018-08-15] MEDS: MIRTAZAPINE 15 MG TABLET PO SCH (21:31)
[2018-08-15] MEDS: ATORVASTATIN CALCIUM 40 MG TABLET PO SCH (21:31)
[2018-08-15 23:13] VITALS: BP 83/61
[2018-08-16 03:26] VITALS: BP 98/67
[2018-08-16 04:14] LABS: CREATININE 1.5 mg/dL (0.5-1.5); POTASSIUM 3.3 mmol/L (3.5-5.1)
[2018-08-16] MEDS: POTASSIUM CHLORIDE 20 MEQ ERTAB PO PRN ×3 (05:46→15:01)
[2018-08-16] MEDS: HYDROCODONE/ACETAMINOPHEN 10/325 MG TAB PO SCH ×3 (05:47→17:26)
[2018-08-16] MEDS: FUROSEMIDE 10 MG/ML 4ML VIAL IV SCH (05:47)
[2018-08-16] MEDS: INSULIN R PO SSI SQ SCH ×3 (06:16→16:30)
[2018-08-16] MEDS: ALBUTEROL SULFATE 0.083% 2.5 MG/3 ML INH IH SCH ×2 (07:23→13:37)
[2018-08-16] MEDS: IPRATROPIUM 0.5 MG/2.5 ML INH IH SCH ×2 (07:23→13:37)
[2018-08-16 07:30] VITALS: BP 85/58
[2018-08-16] MEDS: BUDESONIDE 0.5 MG/2 ML INH IH SCH (07:47)
[2018-08-16] MEDS: METFORMIN HCL 500 MG TABLET PO SCH ×2 (08:07→17:25)
[2018-08-16] MEDS ORDERED: PANT40TA PO (08:54)
[2018-08-16] MEDS ORDERED: FURO40TA5 PO (08:54)
[2018-08-16] MEDS ORDERED: FUROSEMIDE 40 MG TABLET PO SCH (09:00)
[2018-08-16] MEDS: FLUTICASONE PROPIONATE 50MCG/SPRAY 16 GM BOTTLE NS SCH (09:00)
[2018-08-16] MEDS: DICLOFENAC SODIUM TP SCH ×3 (09:00→17:00)
[2018-08-16] MEDS ORDERED: TAMSULOSIN HCL 0.4 MG CAP.ER.24H PO SCH (09:00)
[2018-08-16] MEDS: APPL TP SCH ×3 (09:00→17:00)
[2018-08-16] MEDS: ASPIRIN 81MG TAB.CHEW PO SCH (09:04)
[2018-08-16] MEDS: ISOSORBIDE MONO 60 MG TAB.SR PO SCH (09:05)
[2018-08-16] MEDS: PANTOPRAZOLE SODIUM 40 MG TABLET.DR PO SCH (09:05)
[2018-08-16] MEDS: LORATADINE 10 MG TABLET PO SCH (09:05)
[2018-08-16] MEDS: ENOXAPARIN SODIUM 40 MG/0.4 ML SYRINGE SQ SCH (09:06)
[2018-08-16] MEDS: INSULIN GLARGINE 100 UNITS/ML 10 ML VIAL SQ SCH (09:24)
[2018-08-16 10:30] VITALS: BP 80/64
[2018-08-16 15:30] VITALS: BP 90/63
[2018-08-16] MEDS: LACTULOSE 20 GM/30 ML UDCUP PO PRN (17:26)
== END 2018-08-16 18:23 | disposition home or self-care (01) ==
LOC: EDH 09:34 → INTOOBSV 09:35 → EDHIP 09:35 → 2DH 14:14
PROVIDERS: ADMIT Internal Medicine Critical Care Medicine; ATTEND Internal Medicine Critical Care Medicine
DX: I11.0 Hypertensive heart disease with heart failure (principal); I50.23 Acute on chronic systolic (congestive) heart failure; E11.9 Type 2 diabetes mellitus without complications; E78.5 Hyperlipidemia, unspecified; I25.10 Atherosclerotic heart disease of native coronary artery without angina pectoris; K21.9 Gastro-esophageal reflux disease without esophagitis; I25.2 Old myocardial infarction; I25.5 Ischemic cardiomyopathy; J44.9 Chronic obstructive pulmonary disease, unspecified; F41.1 Generalized anxiety disorder; F06.4 Anxiety disorder due to known physiological condition; F32.9 Major depressive disorder, single episode, unspecified; Z95.1 Presence of aortocoronary bypass graft; Z99.81 Dependence on supplemental oxygen; Z79.899 Other long term (current) drug therapy
CPT/HCPCS: 36415 ×3; 36600; 71045; 80048 ×3; 81003; 82550; 82803; 82948 ×10; 83880; 84484 ×2; 85025; 85610; 85730; 93005; 94640 ×13; 94664; 96365; 96366 ×2; 96372 ×2; 96375; 96376 ×2; 99284; G0378 ×35; J1650 ×2; J1940 ×5; J2260 ×2

== ENCOUNTER 2018-09-01 09:11 | Observation (INO) | payer OTHER ==
[~2018-09-01] VITALS: Ht 165.1 cm; Wt 73.8 kg
[~2018-09-01 09:11] MED LIST changes: +HYDR-4068 PO; +PANT40TA PO
[2018-09-01 09:37] LABS: BASOPHILS % (AUTO) 0.7 % (0.0-5.0); EOSINOPHILS % (AUTO) 2.5 % (0.0-8.0); HEMATOCRIT 36.1 % (42-54); LYMPHOCYTES % (AUTO) 23.9 % (21.0-51.0); MEAN CORPUSCULAR HGB CONC 33.3 g/dL (32.0-36.0); MEAN CORPUSCULAR VOLUME 93.2 fL (79-99); NEUTROPHILS % (AUTO) 64.9 % (40.0-77.0); PLATELET COUNT (AUTO) 212 K/uL (130-400); RED BLOOD CELL COUNT(AUTO) 3.87 MIL/uL (4.50-6.20); RED CELL DISTRIBUTION WIDTH 16.1 % (11.0-15.5); WHITE BLOOD COUNT (AUTO) 7.4 K/uL (4.8-10.8)
[2018-09-01 09:48] LABS: CREATININE 1.5 mg/dL (0.5-1.5); INR 0.97 (0.85-1.15); PARTIAL THROMBOPLASTIN TIME 26.9 SEC (26.3-35.5); POTASSIUM 3.2 mmol/L (3.5-5.1); PROTHROMBIN TIME 10.2 SEC (9.6-11.6)
[2018-09-01 09:52] LABS: ALBUMIN 3.2 g/dL (3.5-5.0); BILIRUBIN,TOTAL 0.5 mg/dL (0.2-1.0); TOTAL PROTEIN, SERUM 6.2 g/dL (6.0-8.3)
[2018-09-01 09:56] LABS: B-TYPE NATRIURETIC PEPTIDE 168 pg/mL (0-100)
[2018-09-01 10:27] LABS: APPEARANCE,URINE Clear (CLEAR); BILIRUBIN,URINE Negative (NEGATIVE); COLOR,URINE Yellow (YELLOW); GLUCOSE, URINE (UA) Negative (NEGATIVE); KETONES,URINE Negative (NEGATIVE); LEUKOCYTE ESTERASE ,URINE Negative (NEGATIVE); NITRATE,URINE Negative (NEGATIVE); OCCULT BLOOD,URINE Negative (NEGATIVE); PH,URINE 6.5 (5.0-8.0); PROTEIN,URINE Negative (NEGATIVE); UROBILINOGEN,URINE 0.2 mg/dL (0.2-1.0)
[2018-09-01] MEDS ORDERED: ACETAMINOPHEN 325 MG TAB PO PRN ×2 (16:00)
[2018-09-01] MEDS ORDERED: ONDANSETRON HCL 4 MG/2 ML VIAL IV PRN (16:00)
[2018-09-01] MEDS ORDERED: HYDRALAZINE HCL 20 MG/ML VIAL IV PRN (16:00)
[2018-09-01] MEDS ORDERED: FUROSEMIDE 10 MG/ML 2ML VIAL ONE (16:04)
[2018-09-01] MEDS ORDERED: POTASSIUM CHLORIDE 20 MEQ ERTAB PO ONE ×2 (16:05→16:50)
[2018-09-01] MEDS ORDERED: POTASSIUM CHLORIDE 20 MEQ ERTAB PO SCH (17:35)
[2018-09-01] MEDS ORDERED: GLUCAGON 1MG KIT 1 MG ML IM PRN (18:30)
[2018-09-01] MEDS ORDERED: DEXTROSE 50%-WATER 50 ML DISP.SYRIN IV PRN (18:30)
--- NOTE | 2018-09-01 18:50 | NUR ---
ADMISSION PT RECEIVED FROM ER VIA STRETCHER. PT WALKED SELF FROM STRETCHER TO HOSPITAL BED. TOLERATED WELL. SPOUSE @ BEDSIDE. A/O X 3. SOB ON EXERTION. O2 NC @ 2L. HOME O2 DEPENDENT. DENIES CHEST PAIN OR DISCOMFORT. DENIES PALPITATIONS. NO N/V. NO DIARRHEA. UP W/ASSISTANCE. PT'S OWN WALKER FROM HOME @ BEDSIDE. PLAN OF CARE REVIEWED. QUESTIONS ENCOURAGED & CLARIFIED. ORIENTED TO RM. INSTRUCTED TO CALL FOR ASSISTANCE. CALL SPENSER W/IN REACH.
[2018-09-01 18:52] VITALS: BP 98/64
--- NOTE | 2018-09-01 20:00 | NUR ---
Report received on patient from Clara BERMUDEZ. Patient admitted earlier. Awake, alert, and oriented x 3. Up ad estela with walker. No c/o pain, sob at this time. Oriented to call light, bed controls, etc. Comfort measures done. Call light and needed items placed readily at hand. Encouraged to call prn.
[2018-09-01] MEDS ORDERED: ISOS30TA6 PO (20:19)
[2018-09-01] MEDS ORDERED: ASPI-1005 PO ×2 (20:19)
[2018-09-01] MEDS ORDERED: BALS60OI TP (20:19)
[2018-09-01] MEDS ORDERED: DOCU100C33 PO (20:19)
[2018-09-01] MEDS ORDERED: OMEP-50 PO (20:19)
[2018-09-01] MEDS: FUROSEMIDE 10 MG/ML 2ML VIAL IV SCH ×2 (20:49→22:22)
[2018-09-01] MEDS: INSULIN HUMULIN R 100 UNIT/ML 3ML SQ SCH (20:50)
[2018-09-01] MEDS ORDERED: ALBUTEROL SULFATE 0.083% 2.5 MG/3 ML INH IH ONE (20:57)
[2018-09-01] MEDS ORDERED: MIRTAZAPINE 15 MG TABLET PO SCH (21:00)
[2018-09-01] MEDS ORDERED: DIAZEPAM 5 MG TABLET PO SCH (21:00)
[2018-09-01] MEDS ORDERED: DOCUSATE SODIUM 100 MG CAP PO PRN (21:00)
[2018-09-01] MEDS: HYDROCODONE/ACETAMINOPHEN 10/325 MG TAB PO PRN (22:25)
[2018-09-01 23:00] VITALS: BP 102/58
[2018-09-02 05:49] LABS: BASOPHILS % (AUTO) 0.6 % (0.0-5.0); EOSINOPHILS % (AUTO) 3.9 % (0.0-8.0); HEMATOCRIT 34.4 % (42-54); LYMPHOCYTES % (AUTO) 26.3 % (21.0-51.0); MEAN CORPUSCULAR HEMOGLOBIN 31.9 pg (27.0-33.0); MEAN CORPUSCULAR HGB CONC 33.9 g/dL (32.0-36.0); MEAN CORPUSCULAR VOLUME 94.1 fL (79-99); MONOCYTES % (AUTO) 12.4 % (3.0-13.0); NEUTROPHILS % (AUTO) 56.8 % (40.0-77.0); NUCLEATED RED BLOOD CELLS 0.1 % (0.0-0.19); PLATELET COUNT (AUTO) 201 K/uL (130-400); RED BLOOD CELL COUNT(AUTO) 3.65 MIL/uL (4.50-6.20); WHITE BLOOD COUNT (AUTO) 4.7 K/uL (4.8-10.8)
[2018-09-02 06:32] LABS: B-TYPE NATRIURETIC PEPTIDE 117 pg/mL (0-100)
[2018-09-02 06:42] LABS: CREATININE 1.5 mg/dL (0.5-1.5); MAGNESIUM 1.8 mg/dL (1.80-2.40); POTASSIUM 3.4 mmol/L (3.5-5.1)
[2018-09-02] MEDS: ALBUTEROL SULFATE 0.083% 2.5 MG/3 ML INH IH PRN ×2 (06:58→19:17)
[2018-09-02] MEDS: FUROSEMIDE 10 MG/ML 2ML VIAL IV SCH ×2 (07:10→13:24)
[2018-09-02] MEDS: INSULIN HUMULIN R 100 UNIT/ML 3ML SQ SCH ×3 (07:14→16:13)
[2018-09-02 07:41] VITALS: BP 133/73
--- NOTE | 2018-09-02 08:00 | NUR ---
AM ASSESSMENT PT SITTING IN BED. SPOUSE @ BEDSIDE. A/O X 3. SOB ON EXERTION. NO DISTRESS NOTED. O2 NC @ 2L. DENIES CHEST PAIN OR DISCOMFORT. DENIES PALPITATIONS. TELE: SR 90s. DENIES N/V AND/OR DIARRHEA. FLUID RESTRICTION REINFORCED. PLAN OF CARE REVIEWED. WALKER @ BEDSIDE. INSTRUCTED TO CALL FOR ASSISTANCE. CALL SPENSER W/IN REACH.
[2018-09-02] MEDS: HYDROCODONE/ACETAMINOPHEN 10/325 MG TAB PO PRN ×2 (08:54→16:12)
[2018-09-02] MEDS ORDERED: FAMOTIDINE 20MG TAB 20 MG TAB PO SCH (09:00)
[2018-09-02] MEDS ORDERED: ISOSORBIDE MONO 30MG TAB SR PO SCH (09:00)
[2018-09-02] MEDS ORDERED: LORATADINE 10 MG TABLET PO SCH (09:00)
[2018-09-02] MEDS ORDERED: ASPIRIN 81MG TAB.CHEW PO SCH (09:00)
[2018-09-02] MEDS ORDERED: FAMOTIDINE/PF 20 MG/2 ML VIAL IV SCH (09:00)
[2018-09-02] MEDS ORDERED: BALSAM PERU/CASTOR OIL 60 GM TUBE TP SCH (09:00)
[2018-09-02] MEDS ORDERED: ENOXAPARIN SODIUM 40 MG/0.4 ML SYRINGE SQ SCH (09:00)
[2018-09-02 11:18] VITALS: BP 120/72
--- NOTE | 2018-09-02 13:24 | NUR ---
DC PLAN VISITED WITH PATIENT PATIENT ON THE PHONE. PATIENT LIVES WITH SPOUSE. INDEPENDENT ABLE TO PERFORM ADL'S. PROVIDER 2 HRS A DAY. JELENA IVERSON, BRANDON, IGNACIA, 02. PLAN TO DC HOME. Addendum: 09/02/18 at 1326 by ROLAN SWEET RN Amended: Links added.
[2018-09-02 15:54] VITALS: BP 113/79
[2018-09-02] MEDS ORDERED: FURO20TA4 PO (19:29)
--- NOTE | 2018-09-02 20:15 | NUR ---
DC DC TEACHING AND INSTRUCTION GIVEN TO PT AND ; VERBALIZED UNDERSTANDING. LASIX 40 MG IM GIVEN INSTRUCTED BY MD PRIOR TO DC. VS WNL: BP-112/70,P-92,RR-24, O2 SATS 98%, T-97.0. IV TO RIGHT AC REMOVED WITH TIP INTACT. TELEPACK REMOVED. PT DENIES PAIN OR DISTRESS. PT ESCORTED TO PRIVATE CAR VIA WHEELCHAIR IN STABLE CONDITION.
[2018-09-02] MEDS ORDERED: FUROSEMIDE 10 MG/ML 4ML VIAL IM SCH (20:30)
[2018-09-02] MEDS ORDERED: Melatonin 6 MG PO PRN (21:00)
== END 2018-09-02 20:16 | disposition home or self-care (01) ==
LOC: EDH 09:11 → EDHIP 15:59 → INTOOBSV 15:59 → 2AH 18:28
PROVIDERS: ADMIT Internal Medicine; ATTEND Internal Medicine
DX: I13.0 Hypertensive heart and chronic kidney disease with heart failure and stage 1 through stage 4 chronic kidney disease, or unspecified chronic kidney disease (principal); N18.3 Chronic kidney disease, stage 3 (moderate); I50.21 Acute systolic (congestive) heart failure; J96.21 Acute and chronic respiratory failure with hypoxia; I25.10 Atherosclerotic heart disease of native coronary artery without angina pectoris; J18.9 Pneumonia, unspecified organism; J44.0 Chronic obstructive pulmonary disease with (acute) lower respiratory infection; J84.10 Pulmonary fibrosis, unspecified; F43.10 Post-traumatic stress disorder, unspecified; Z95.1 Presence of aortocoronary bypass graft; Z95.810 Presence of automatic (implantable) cardiac defibrillator; Z81.8 Family history of other mental and behavioral disorders; Z88.0 Allergy status to penicillin; Z79.899 Other long term (current) drug therapy
CPT/HCPCS: 36415 ×2; 71045; 74176; 80048; 80053; 81003; 82550; 82948 ×4; 83605 ×2; 83735; 83880 ×2; 84100; 84484; 85025 ×2; 85610; 85730; 87040 ×2; 93005; 93926; 93970; 94640 ×3; 94664; 96372; 96374; 96376; 99284; G0378 ×27; J1650; J1940 ×5

== ENCOUNTER → 2021-11-16 | Outpatient (CLI) | payer OTHER ==
[~2021-11-16] MED LIST changes: +ASPI-1005 PO; +ATOR40TA71 PO; +BALS60OI TP; -BUDE10.2 IH; -CARB1DRO4 OP; +CARV3.12 PO; -DICL4100G TP; +DOCU-116 PO; +DOCU100C33 PO; +ERGO500093 PO; -FLUT15.88 NS; +FURO20TA4 PO; +GUAI100S13 PO; +ISOS30TA92 PO; -LIDO700A30 TP; +METO5TAB7 PO; -MICO45CR11 VG; +MIRT-93 PO; -MIRT30TA6 PO; +OMEP20CA12 PO; -PANT40TA PO; +PANT40TA54 PO; +POTA-79 PO; -SPIR25TA PO; +TRAZ-187 PO
== END | disposition home or self-care (01) ==
LOC: OIH 13:12
PROVIDERS: ATTEND Internal Medicine Cardiovascular Disease
DX: I25.5 Ischemic cardiomyopathy (principal); R55 Syncope and collapse
CPT/HCPCS: 93306